=== PATIENT | female | born 1970 | race Caucasian/White ===

== ENCOUNTER 2020-08-15 17:07 | Emergency (ER) | payer MEDICARE ==
[~2020-08-15] VITALS: Ht 160 cm; Wt 103.0 kg
[2020-08-15 17:24] VITALS: BP 154/86
[2020-08-15] MEDS ORDERED: LIDOCAINE-MPF 1%, 5ML ONE (17:46)
[2020-08-15] MEDS ORDERED: LIDOCAINE-MPF 1%, 5ML INFIL ONE (18:00)
[2020-08-15] MEDS ORDERED: DIPH,PERTUSS(ACELL),TET VAC/PF 0.5 ML IM-VACC ONE ×2 (18:00→19:04)
--- NOTE | 2020-08-15 19:02 | NUR ---
Dustin HOOD PA to bedside to close wound.
[2020-08-15] MEDS ORDERED: NEOSPORIN OINT. PKT 1 PACKET ONE (19:04)
== END 2020-08-15 19:25 | disposition home or self-care (01) ==
LOC: ED 19:10
DX: S61.511A Laceration without foreign body of right wrist, initial encounter (principal); E03.9 Hypothyroidism, unspecified; Z90.89 Acquired absence of other organs; Z90.710 Acquired absence of both cervix and uterus; Z90.49 Acquired absence of other specified parts of digestive tract; Z87.891 Personal history of nicotine dependence; W45.8XXA Other foreign body or object entering through skin, initial encounter; Y93.89 Activity, other specified; Y92.009 Unspecified place in unspecified non-institutional (private) residence as the place of occurrence of the external cause; Y99.8 Other external cause status
CPT/HCPCS: 12032; 90471; 90715; 99284